=== PATIENT | female | born 1985 | race Caucasian/White ===

== ENCOUNTER 2018-04-06 14:57 | Inpatient (IN) | payer BC ==
[2018-04-06] MEDS ORDERED: Sodium Chloride 0.9% 2.5 ML Syringe FLUSH PRN (15:08)
[2018-04-06] MEDS ORDERED: Lidocaine 1% 50 ML MDV INJECT PRN (15:08)
[2018-04-06] MEDS ORDERED: Terbutaline 1 MG/ML SDV SUBCUT PRN (15:08)
[2018-04-06] MEDS ORDERED: Tranexamic Acid 1,000 MG in Sodium Chloride 0.9% 100 ML IV PRN (15:08)
[2018-04-06] MEDS ORDERED: Water For Irrigation,Sterile 1,000 ML Container IRR PRN (15:08)
[2018-04-06] MEDS ORDERED: Misoprostol 200 MCG Tab PO PRN (15:08)
[2018-04-06] MEDS ORDERED: Methylergonovine 0.2 MG/1 ML Amp IM PRN (15:08)
[2018-04-06] MEDS ORDERED: Butorphanol 1 MG/ML SDV IVPUSH PRN (15:08)
[2018-04-06] MEDS ORDERED: Sodium Chloride 0.9% 10 ML Syringe FLUSH PRN (15:08)
[2018-04-06] MEDS ORDERED: Carboprost Tromethamine 250 MCG/1 ML Amp IM PRN (15:08)
[2018-04-06] MEDS ORDERED: Oxytocin/0.9 % Sodium Chloride 30 UNIT/500 ML BAG IV SCH ×2 (15:15)
[2018-04-06] MEDS: Dextrose 5%-Lactated Ringers 1,000 ML IV SCH ×3 (16:49→22:07)
[2018-04-06] MEDS ORDERED: fentaNYL 100 MCG/2 ML SDV ONE (21:19)
--- NOTE | 2018-04-06 22:10 | PCM.PREANE ---
Preanesthetic Assessment - Anesthesia/Transfusion/Family Hx Anesthesia History: Prior Anesthesia Without Reaction Family History of Anesthesia Reaction: No Transfusion History: No Prior Transfusion(s) - Review of Systems General: No Symptoms Pulmonary: No Symptoms Cardiovascular: No Symptoms Gastrointestinal: Nausea, Vomiting Neurological: No Symptoms Other: Reports: None - Physical Assessment NPO Status Date: 04/06/18 NPO Status Time: 22:08 (sips/chips) Blood Pressure: 128/75 Height: 5 ft 5 in Weight: 176 lb ASA Class: 2 Mental Status: Alert & Oriented x3 Airway Class: Mallampati = 2 Dentition: Reports: Normal Dentition ROM/Head Extension: Full Lungs: Clear to Auscultation, Normal Respiratory Effort Cardiovascular: Regular Rate, Regular Rhythm - Lab Values: Laboratory Last Values WBC 7.82 K/uL (4.0-11.0) 04/06/18 15:50 RBC 3.83 M/uL (4.30-5.90) L 04/06/18 15:50 Hgb 11.8 g/dL (12.0-16.0) L 04/06/18 15:50 Hct 34.9 % (36.0-46.0) L 04/06/18 15:50 MCV 91.1 fL (80.0-98.0) 04/06/18 15:50 MCH 30.8 pg (27.0-32.0) 04/06/18 15:50 MCHC 33.8 g/dL (31.0-37.0) 04/06/18 15:50 RDW Std Deviation 47.3 fl (28.0-62.0) 04/06/18 15:50 RDW Coeff of Raji 14 % (11.0-15.0) 04/06/18 15:50 Plt Count 212 K/uL (150-400) 04/06/18 15:50 MPV 10.90 fL (7.40-12.00) 04/06/18 15:50 Nucleated RBC % 0.0 /100WBC 04/06/18 15:50 Nucleated RBCs # 0 K/uL 04/06/18 15:50 Blood Type A POSITIVE 04/06/18 15:50 Antibody Screen NEGATIVE 04/06/18 15:50 - Allergies Allergies/Adverse Reactions: Allergies Allergy/AdvReac Type Severity Reaction Status Date / Time ciprofloxacin Allergy Dizziness Verified 12/11/15 21:36 - Blood Blood Available: No Product(s) Available: None - Anesthesia Plan Free Text/Narrative:: Labor Epidural - Acknowledgements Anesthesia Type Planned: Epidural Pt an Appropriate Candidate for the Planned Anesthesia: Yes Alternatives and Risks of Anesthesia Discussed w Pt/Guardian: Yes Pt/Guardian Understands and Agrees with Anesthesia Plan: Yes PreAnesthesia Questionnaire HEENT History: Reports: Allergic Rhinitis, Sinusitis Genitourinary History: Reports: UTI, 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, Herpes - Past Surgical History HEENT Surgical History: Reports: Oral Surgery Female Surgical History: Reports: LEEP - SUBSTANCE USE Smoking Status *Q: Former Smoker Tobacco Use Within Last Twelve Months: Cigarettes Second Hand Smoke Exposure: No Recreational Drug Use History: No - HOME MEDS Home Medications: Home Meds Cyanocobalamin/Cobamamide [B-12 5,000 MCG Sublingual] 1 each SL DAILY 04/06/18 [ History] Vits #93/Iron Fum/FA [ Formula Tablet] 1 each PO DAILY [History] valACYclovir HCl [Valtrex] 500 mg PO BID 04/06/18 [History] - CURRENT (IN HOUSE) MEDS Current Meds: Current Medications Butorphanol Tartrate (Stadol) 1 mg IVPUSH Q1H PRN PRN Reason: Pain Carboprost Tromethamine (Hemabate Ds) 250 mcg IM ASDIRECTED PRN PRN Reason: Post Hemorrhage Dextrose/Lactated Ringer's (Dextrose 5%-Lactated Ringers) 1,000 mls @ 150 mls/ hr IV ASDIRECTED MITCH Last Admin: 04/06/18 21:31 Dose: 999 mls/hr Oxytocin/Sodium Chloride (Oxytocin 30 Unit/500 Ml-Ns) 30 unit in 500 mls @ 999 mls/hr IV TITRATE MITCH Oxytocin/Sodium Chloride (Oxytocin 30 Unit/500 Ml-Ns) 30 unit in 500 mls @ 2 mls/hr IV TITRATE MITCH; Protocol Last Titration: 04/06/18 20:12 Dose: 8 munits/min, 8 mls/hr Tranexamic Acid 1,000 mg/ (Sodium Chloride) 110 mls @ 660 mls/hr IV ONETIME PRN PRN Reason: Bleeding Lidocaine HCl (Xylocaine 1%) 50 ml INJECT .ONCE PRN PRN Reason: Laceration repair Methylergonovine Maleate (Methergine) 0.2 mg IM ASDIRECTED PRN PRN Reason: Post Hemorrhage Misoprostol (Cytotec) 200 mcg PO .ONCE PRN PRN Reason: Post Hemorrhage Sodium Chloride (Saline Flush) 10 ml FLUSH ASDIRECTED PRN PRN Reason: Keep Vein Open Sodium Chloride (Saline Flush) 2.5 ml FLUSH ASDIRECTED PRN PRN Reason: Keep Vein Open Sterile Water (Sterile Water For Irrigation) 1,000 ml IRR ASDIRECTED PRN PRN Reason: delivery Terbutaline Sulfate (Brethine) 0.25 mg SUBCUT ASDIRECTED PRN PRN Reason: Tacysystole Valacyclovir HCl (Valtrex) 500 mg PO BID MITCH Discontinued Medications Fentanyl (Sublimaze) Confirm Administered Dose 100 mcg .ROUTE .STK-MED ONE Stop: 04/06/18 21:20 Fentanyl/Bupivacaine HCl (Mdwoubrp-Npfgq-Ts 2 Mcg/Ml-0.125%) Confirm Administered Dose 100 mls @ as directed EP .STK-MED ONE Stop: 04/06/18 21:20
[2018-04-06] MEDS: valACYclovir 500 MG Tab PO SCH (22:42)
[2018-04-07] MEDS ORDERED: Lanolin 100% Cream 7 GM Tube TOP PRN (02:05)
[2018-04-07] MEDS ORDERED: Aluminum Hydroxide/Magnesium Hydroxide/Simethicone Susp 30 ML Cup PO PRN (02:05)
[2018-04-07] MEDS ORDERED: Benzocaine/Menthol 20%-0.5% Spray 78 GM Cannister TOP PRN (02:05)
[2018-04-07] MEDS ORDERED: Docusate Sodium 100 MG Cap PO PRN (02:05)
[2018-04-07] MEDS ORDERED: Ibuprofen 400 MG Tab PO PRN (02:05)
[2018-04-07] MEDS ORDERED: Ondansetron 4 MG/2 ML SDV IVPUSH PRN (02:05)
[2018-04-07] MEDS ORDERED: Witch Hazel Medicated Pads 40/Jar TOP PRN (02:05)
[2018-04-07] MEDS ORDERED: Bisacodyl 10 MG Supp RECTAL PRN (02:05)
[2018-04-07] MEDS ORDERED: Acetaminophen 500 MG Tab PO PRN ×2 (02:05)
[2018-04-07] MEDS: Ibuprofen 800 MG Tab PO PRN ×2 (04:20→14:42)
--- NOTE | 2018-04-07 05:24 | OR ---
SURGEON: Purnima Floyd M.D. DATE OF PROCEDURE: 04/07/2018 PREOPERATIVE DIAGNOSES: 1. A 40 and 5 weeks' intrauterine . 2. Spontaneous rupture of membranes. POSTOPERATIVE DIAGNOSES: 1. A 40 and 5 weeks' intrauterine . 2. Spontaneous rupture of membranes. PROCEDURE PERFORMED: Spontaneous vaginal delivery with intact perineum. ANESTHESIA: Epidural. ESTIMATED BLOOD LOSS: 400 mL. COMPLICATIONS: None. FINDINGS: Viable male, scores of 9 at 1 minute and 9 at 5 minutes, weight of 3880 g. Spontaneous delivery, intact placenta with 3-vessel cord. DISPOSITION: to nursery and mom in LDRP, stable. PROCEDURE IN DETAIL: Marj is a 32-year-old A1 at 40 and 4 weeks' gestational age when she had spontaneous rupture of membranes with clear fluid. She is group B beta strep negative. Therefore, she was admitted. Routine labs were drawn. On initial examination, she was found to be 3 to 4 cm dilated. She was monitored with no evidence of active labor and was initiated on Pitocin augmentation. heart tones in 130s with variability. She began making cervical change becoming more uncomfortable. She underwent regional anesthesia shortly after 9:00 p.m. At that time, she was found to be 4 cm. Over the next few hours, she progressed nicely to complete, 100% effaced, 0 station, began pushing efforts. I was called for delivery. Upon my arrival, the patient was placed in modified dorsal lithotomy position, prepped and draped in the usual aseptic manner, continued with pushing efforts, pushed adequately to a +4 station. heart tones remained in the 140s with pushing efforts. The patient was able to deliver the infant's head atraumatically and spontaneously followed by anterior shoulder, posterior shoulder, and remainder of the body without difficulty. The infant's oropharynx and nares were bulb suctioned. Cord was clamped x2 and cut. was handed off to his mother and attending nursing staff side. Cord arterial, cord venous, and cord blood sampling were obtained. Light pressure was applied while the placenta was delivered spontaneously intact. Vigorous fundal uterine massage was then applied while 30 units of Pitocin was delivered in 500 mL IV fluid. Upon inspection of cervix, vaginal sidewalls, and perineum, these were found to be intact. Sponge count was correct. The patient remained in LDRP and infant to nursery. JHONY / JACOB /[id number] MTDGetachew
--- NOTE | 2018-04-07 06:04 | PCM48HPAN ---
Post Anesthesia Note - EVALUATION WITHIN 48HRS OF ANESTHETIC Vital Signs in Normal Range: Yes Patient Participated in Evaluation: Yes Respiratory Function Stable: Yes Airway Patent: Yes Cardiovascular Function Stable: Yes Hydration Status Stable: Yes Pain Control Satisfactory: Yes Nausea and Vomiting Control Satisfactory: Yes Mental Status Recovered: Yes Blood Pressure: 128/75 - COMMENTS/OBSERVATIONS Free Text/Narrative:: No anesthesia complications.
[2018-04-07] MEDS: valACYclovir 500 MG Tab PO SCH ×2 (08:32→20:52)
[2018-04-07] MEDS ORDERED: diphenhydrAMINE 25 MG Cap PO PRN (09:34)
[2018-04-07] MEDS: oxyCODONE 5 MG Tab PO PRN ×2 (16:12→20:52)
[2018-04-08] MEDS: oxyCODONE 5 MG Tab PO PRN (00:02)
--- NOTE | 2018-04-08 06:44 | PCM.PNPP ---
- General Info Date of Service: 04/08/18 Admission Dx/Problem (Free Text): 32 yo s/p PPD1 Subjective Update: Patient denies any complains ambulating , tolerating regular diet , normal lochia Functional Status: Reports: Pain Controlled, Tolerating Diet, Ambulating, Urinating - Review of Systems General: Reports: No Symptoms HEENT: Reports: No Symptoms Pulmonary: Reports: No Symptoms Cardiovascular: Reports: No Symptoms Gastrointestinal: Reports: No Symptoms Genitourinary: Reports: No Symptoms Musculoskeletal: Reports: No Symptoms Skin: Reports: No Symptoms Neurological: Reports: No Symptoms Psychiatric: Reports: No Symptoms - General Info Date of Service: 04/08/18 - Patient Data Vital Signs - Most Recent: Last Vital Signs Temp 36.3 C 04/08/18 04:20 Pulse 67 04/08/18 04:20 Resp 14 04/08/18 04:20 BP 128/64 04/08/18 04:20 Pulse Ox 97 04/08/18 04:20 Weight - Most Recent: 79.832 kg Lab Results - Last 24 Hours: Laboratory Results - last 24 hr 04/08/18 Range/Units 04:50 Hgb 10.6 L (12.0-16.0) g/dL Hct 31.1 L (36.0-46.0) % Med Orders - Current: Current Medications Acetaminophen (Tylenol Extra Strength) 500 mg PO Q4H PRN PRN Reason: Pain Acetaminophen (Tylenol Extra Strength) 1,000 mg PO Q4H PRN PRN Reason: Pain Al Hydroxide/Mg Hydroxide (Mag-Al Plus) 30 ml PO Q8H PRN PRN Reason: Heartburn Benzocaine/Menthol (Dermoplast Pain Relief 20%-0.5% [place]) 78 gm TOP ASDIRECTED PRN PRN Reason: Perineal Comfort Measure Bisacodyl (Dulcolax) 10 mg RECTAL .ONCE PRN PRN Reason: Constipation Carboprost Tromethamine (Hemabate Ds) 250 mcg IM ASDIRECTED PRN PRN Reason: Post Hemorrhage Diphenhydramine HCl (Benadryl) 25 mg PO Q6H PRN PRN Reason: Itching Last Admin: 04/07/18 09:50 Dose: 25 mg Docusate Sodium (Colace) 100 mg PO BID PRN PRN Reason: Constipation Last Admin: 04/07/18 04:19 Dose: 100 mg Emollient Ointment (Lansinoh Hpa) 0 gm TOP ASDIRECTED PRN PRN Reason: Sore Nipples Dextrose/Lactated Ringer's (Dextrose 5%-Lactated Ringers) 1,000 mls @ 150 mls/ hr IV ASDIRECTED MITCH Last Admin: 04/06/18 22:07 Dose: 150 mls/hr Oxytocin/Sodium Chloride (Oxytocin 30 Unit/500 Ml-Ns) 30 unit in 500 mls @ 999 mls/hr IV TITRATE MITCH Oxytocin/Sodium Chloride (Oxytocin 30 Unit/500 Ml-Ns) 30 unit in 500 mls @ 2 mls/hr IV TITRATE MITCH; Protocol Last Titration: 04/07/18 01:43 Dose: 500 munits/min, 500 mls/hr Tranexamic Acid 1,000 mg/ (Sodium Chloride) 110 mls @ 660 mls/hr IV ONETIME PRN PRN Reason: Bleeding Ibuprofen (Motrin) 400 mg PO Q4H PRN PRN Reason: Pain Ibuprofen (Motrin) 800 mg PO Q6H PRN PRN Reason: Pain Last Admin: 04/07/18 14:42 Dose: 800 mg Lidocaine HCl (Xylocaine 1%) 50 ml INJECT .ONCE PRN PRN Reason: Laceration repair Methylergonovine Maleate (Methergine) 0.2 mg IM ASDIRECTED PRN PRN Reason: Post Hemorrhage Misoprostol (Cytotec) 200 mcg PO .ONCE PRN PRN Reason: Post Hemorrhage Ondansetron HCl (Zofran) 4 mg IVPUSH Q6H PRN PRN Reason: Nausea/Vomiting Oxycodone HCl (Oxycodone) 5 mg PO Q2H PRN PRN Reason: Pain Last Admin: 04/08/18 00:02 Dose: 5 mg Sodium Chloride (Saline Flush) 10 ml FLUSH ASDIRECTED PRN PRN Reason: Keep Vein Open Sodium Chloride (Saline Flush) 2.5 ml FLUSH ASDIRECTED PRN PRN Reason: Keep Vein Open Sterile Water (Sterile Water For Irrigation) 1,000 ml IRR ASDIRECTED PRN PRN Reason: delivery Last Admin: 04/07/18 01:00 Dose: 1,000 ml Valacyclovir HCl (Valtrex) 500 mg PO BID MITCH Last Admin: 04/07/18 20:52 Dose: 500 mg [place] Sonal (Tucks) 1 pad TOP ASDIRECTED PRN PRN Reason: comfort care Discontinued Medications Butorphanol Tartrate (Stadol) 1 mg IVPUSH Q1H PRN PRN Reason: Pain Fentanyl (Sublimaze) Confirm Administered Dose 100 mcg .ROUTE .STK-MED ONE Stop: 04/06/18 21:20 Last Admin: 04/07/18 07:28 Dose: Not Given Fentanyl/Bupivacaine HCl (Mmigzuac-Njiqs-Sf 2 Mcg/Ml-0.125%) Confirm Administered Dose 100 mls @ as directed EP .STK-MED ONE Stop: 04/06/18 21:20 Last Admin: 04/07/18 07:28 Dose: Not Given Terbutaline Sulfate (Brethine) 0.25 mg SUBCUT ASDIRECTED PRN PRN Reason: Tacysystole - Infant Interaction Support Person: - Recovery Exam Fundal Tone: Firm Fundal Level: 2 Fingerbreadths Below Umbilicus Fundal Placement: Midline Lochia Amount: Scant Lochia Color: Rubra/Red Perineum Description: Intact, Minimal Bruising/Swelling Episiotomy/Laceration: None Bladder Status: Voiding Urinary Elimination: Voided - Exam General: Alert, Oriented HEENT: Pupils Equal Neck: Supple Lungs: Clear to Auscultation Cardiovascular: Regular Rate, Regular Rhythm GI/Abdominal Exam: Normal Bowel Sounds Extremities: Normal Inspection Skin: Warm Wound/Incisions: Healing Well Neurological: No New Focal Deficit Psy/Mental Status: Alert - Problem List & Annotations (1) Vaginal delivery SNOMED Code(s): 917366292 Code(s): O80 - ENCOUNTER FOR FULL-TERM UNCOMPLICATED DELIVERY Status: Acute Current Visit: No - Problem List Review Problem List Initiated/Reviewed/Updated: Yes - My Orders Last 24 Hours: My Active Orders 04/07/18 09:34 diphenhydrAMINE [Benadryl] 25 mg PO Q6H PRN - Assessment Assessment:: 32 yo s/p , PPD1 stable - Plan Plan:: Routine care d/c home
[2018-04-08] MEDS: Ibuprofen 800 MG Tab PO PRN (07:59)
[2018-04-08 08:04] VITALS: BP 110/78
[2018-04-08] MEDS: valACYclovir 500 MG Tab PO SCH (09:18)
== END 2018-04-08 12:00 | disposition home or self-care (01) | DRG 560 ==
LOC: MW.OBCHECK 14:57 → MW.OB 14:59 → MW.OBCHECK 15:08 → MW.OB 15:08 → OBSVTOIN 04-07 01:43 → MW.OB 04-07 04:15
PROVIDERS: ADMIT Obstetrics & Gynecology; ATTEND Obstetrics & Gynecology
PROC: 10E0XZZ Delivery of Products of Conception, External Approach (ICD-10-PCS; principal; 2018-04-07)
PROC: 3E033VJ Introduction of Other Hormone into Peripheral Vein, Percutaneous Approach (ICD-10-PCS; 2018-04-07)
DX: O42.02 Full-term premature rupture of membranes, onset of labor within 24 hours of rupture (principal); Z3A.40 40 weeks gestation of pregnancy; Z37.0 Single live birth
CPT/HCPCS: 36415; 51702; 59025; 59409; 82803; 85014; 85018; 85027; 86850; 86900; 86901; A9270-GY; J2590; J7042

== ENCOUNTER 2018-05-15 00:01 | Emergency (ER) | payer BC ==
--- NOTE | 2018-05-15 00:59 | EDM.PDOC ---
ED HPI GENERAL MEDICAL PROBLEM - General Chief Complaint: Fever Stated Complaint: FLU LIKE SYMPTONS AND HIGH FEVER Time Seen by Provider: 05/15/18 00:58 Source of Information: Reports: Patient - History of Present Illness INITIAL COMMENTS - FREE TEXT/NARRATIVE: HISTORY AND PHYSICAL: History of present illness: [Patient presents with fever, she has a one-month insufficient is breast- feeding and has a mastitis. She also has UTI.] No nausea vomiting chills sweats Review of systems: As per history of present illness and below otherwise all systems reviewed and negative. Past medical history: As per history of present illness and as reviewed below otherwise noncontributory. Surgical history: As per history of present illness and as reviewed below otherwise noncontributory. Social history: No reported history of drug or alcohol abuse. Family history: As per history of present illness and as reviewed below otherwise noncontributory. Physical exam: HEENT: Atraumatic, normocephalic, pupils reactive, negative for conjunctival pallor or scleral icterus, mucous membranes moist, throat clear, neck supple, nontender, trachea midline. Lungs: Clear to auscultation, breath sounds equal bilaterally, chest nontender. Heart: S1S2, regular, negative for clicks, rubs, or JVD. Abdomen: Soft, nondistended, nontender. Negative for masses or hepatosplenomegaly. Negative for costovertebral tenderness. Pelvis: Stable nontender. Genitourinary: Deferred. Rectal: Deferred. Extremities: Atraumatic, negative for cords or calf pain. Neurovascular unremarkable. Neuro: Awake, alert, oriented. Cranial nerves II through XII unremarkable. Cerebellum unremarkable. Motor and sensory unremarkable throughout. Exam nonfocal. 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 Generalized Pain Score (Numeric/FACES): 4 - Related Data Allergies Allergy/AdvReac Type Severity Reaction Status Date / Time ciprofloxacin Allergy Dizziness Verified 12/11/15 21:36 Home Meds: Home Meds . 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, Herpes - Past Surgical History HEENT Surgical History: Reports: Oral Surgery Female Surgical History: Reports: LEEP Social & Family History - Family History HEENT: Reports: Allergic Rhinitis, Cataract, Impaired Vision, Macular Degeneration, Sinusitis Cardiac: Reports: Hypertension GI: Reports: Cirrhosis OBGYN: Reports: Neurological: Reports: TIA Psychiatric: Reports: Anxiety Oncologic: Reports: Prostate - Tobacco Use Smoking Status *Q: Never Smoker - Caffeine Use Caffeine Use: Reports: Coffee, Soda, Tea - Recreational Drug Use Recreational Drug Use: No ED ROS GENERAL - Review of Systems Review Of Systems: See Below ED EXAM, GENERAL - Physical Exam Exam: See Below Course - Vital Signs Last Recorded V/S: Last Vital Signs Temp 100.9 F H 05/15/18 00:34 Pulse 89 05/15/18 00:27 Resp 18 05/15/18 00:27 BP 122/72 05/15/18 00:27 Pulse Ox 96 05/15/18 00:27 - Orders/Labs/Meds Orders: Active Orders 24 hr Category Date Time Status Chest 1V Frontal [CR] Stat Exams 05/15/18 00:57 Taken CULTURE BLOOD [BC] Stat Lab 05/15/18 01:22 Received CULTURE BLOOD [BC] Stat Lab 05/15/18 01:29 Received CULTURE URINE [RM] Stat Lab 05/15/18 01:57 Ordered HCG QUALITATIVE,URINE [URCHEM] Stat Lab 05/15/18 01:16 Ordered UA W/MICROSCOPIC [URIN] Stat Lab 05/15/18 01:16 Ordered Blood Culture x2 Reflex Set [OM.PC] Stat Oth 05/15/18 00:57 Ordered Labs: Laboratory Tests 06/17/18 06/17/18 06/17/18 Range/Units 01:16 01:16 01:22 WBC 9.52 (4.0-11.0) K/uL RBC 3.47 L (4.30-5.90) M/uL Hgb 10.6 L (12.0-16.0) g/dL Hct 31.7 L (36.0-46.0) % MCV 91.4 (80.0-98.0) fL MCH 30.5 (27.0-32.0) pg MCHC 33.4 (31.0-37.0) g/dL RDW Std Deviation 39.0 (28.0-62.0) fl RDW Coeff of Raji 12 (11.0-15.0) % Plt Count 184 (150-400) K/uL MPV 10.40 (7.40-12.00) fL Neut % (Auto) 85.3 H (48.0-80.0) % Lymph % (Auto) 9.5 L (16.0-40.0) % Lane % (Auto) 4.6 (0.0-15.0) % Eos % (Auto) 0.5 (0.0-7.0) % Baso % (Auto) 0.1 (0.0-1.5) % Neut # (Auto) 8.1 H (1.4-5.7) K/uL Lymph # (Auto) 0.9 (0.6-2.4) K/uL Lane # (Auto) 0.4 (0.0-0.8) K/uL Eos # (Auto) 0.1 (0.0-0.7) K/uL Baso # (Auto) 0.0 (0.0-0.1) K/uL Sodium (136-145) mmol/L Potassium (3.5-5.1) mmol/L Chloride (98-107) mmol/L Carbon Dioxide (21.0-32.0) mmol/L BUN (7.0-18.0) mg/dL Creatinine (0.6-1.0) mg/dL Est Cr Clr Drug Dosing mL/min Estimated GFR (MDRD) ml/min Glucose (74-106) mg/dL Calcium (8.5-10.1) mg/dL Total Bilirubin (0.2-1.0) mg/dL AST (15-37) IU/L ALT (14-63) IU/L Alkaline Phosphatase (46-116) U/L Total Protein (6.4-8.2) g/dL Albumin (3.4-5.0) g/dL Globulin (2.0-3.5) g/dL Albumin/Globulin Ratio (1.3-2.8) Urine Color YELLOW Urine Appearance HAZY Urine pH 6.0 (5.0-8.0) Ur Specific [place] <= 1.005 (1.001-1.035) Urine Protein NEGATIVE (NEGATIVE) mg/dL Urine Glucose (UA) NEGATIVE (NEGATIVE) mg/dL Urine Ketones NEGATIVE (NEGATIVE) mg/dL Urine Occult Blood NEGATIVE (NEGATIVE) Urine Nitrite POSITIVE H (NEGATIVE) Urine Bilirubin NEGATIVE (NEGATIVE) Urine Urobilinogen 0.2 (<2.0) EU/dL Ur Leukocyte Esterase TRACE (NEGATIVE) Urine RBC 0-2 (0-2/HPF) Urine WBC 1-3 (0-5/HPF) Ur Epithelial Cells FEW (NONE-FEW) Urine Bacteria 2+ H (NEGATIVE) Urine HCG, Qual NEGATIVE (NEGATIVE) 05/15/18 Range/Units 01:22 WBC (4.0-11.0) K/uL RBC (4.30-5.90) M/uL Hgb (12.0-16.0) g/dL Hct (36.0-46.0) % MCV (80.0-98.0) fL MCH (27.0-32.0) pg MCHC (31.0-37.0) g/dL RDW Std Deviation (28.0-62.0) fl RDW Coeff of Raji (11.0-15.0) % Plt Count (150-400) K/uL MPV (7.40-12.00) fL Neut % (Auto) (48.0-80.0) % Lymph % (Auto) (16.0-40.0) % Lane % (Auto) (0.0-15.0) % Eos % (Auto) (0.0-7.0) % Baso % (Auto) (0.0-1.5) % Neut # (Auto) (1.4-5.7) K/uL Lymph # (Auto) (0.6-2.4) K/uL Lane # (Auto) (0.0-0.8) K/uL Eos # (Auto) (0.0-0.7) K/uL Baso # (Auto) (0.0-0.1) K/uL Sodium 140 (136-145) mmol/L Potassium 3.2 L (3.5-5.1) mmol/L Chloride 104 (98-107) mmol/L Carbon Dioxide 26.2 (21.0-32.0) mmol/L BUN 9 (7.0-18.0) mg/dL Creatinine 1.0 (0.6-1.0) mg/dL Est Cr Clr Drug Dosing 72.00 mL/min Estimated GFR (MDRD) > 60.0 ml/min Glucose 110 H (74-106) mg/dL Calcium 8.3 L (8.5-10.1) mg/dL Total Bilirubin 0.5 (0.2-1.0) mg/dL AST 18 (15-37) IU/L ALT 35 (14-63) IU/L Alkaline Phosphatase 72 (46-116) U/L Total Protein 6.5 (6.4-8.2) g/dL Albumin 3.3 L (3.4-5.0) g/dL Globulin 3.2 (2.0-3.5) g/dL Albumin/Globulin Ratio 1.0 L (1.3-2.8) Urine Color Urine Appearance Urine pH (5.0-8.0) Ur Specific [place] (1.001-1.035) Urine Protein (NEGATIVE) mg/dL Urine Glucose (UA) (NEGATIVE) mg/dL Urine Ketones (NEGATIVE) mg/dL Urine Occult Blood (NEGATIVE) Urine Nitrite (NEGATIVE) Urine Bilirubin (NEGATIVE) Urine Urobilinogen (<2.0) EU/dL Ur Leukocyte Esterase (NEGATIVE) Urine RBC (0-2/HPF) Urine WBC (0-5/HPF) Ur Epithelial Cells (NONE-FEW) Urine Bacteria (NEGATIVE) Urine HCG, Qual (NEGATIVE) Departure - Departure Time of Disposition: 02:23 Disposition: Home, Self-Care 01 Condition: Good Clinical Impression: Mastitis, UTI (urinary tract infection) - Discharge Information Referrals: Jing Hallman DO [Primary Care Provider] - Forms: ED Department Discharge Additional Instructions: Medication as prescribed Return if symptoms persist or worsen Follow-up with primary care, call phone number below to schedule appropriate follow-up [facility] - Primary Care [address] [place] [id number] The following information is given to patients seen in the emergency department who are being discharged to home. This information is to outline your options for follow-up care. We provide all patients seen in our emergency department with a follow-up referral. The need for follow-up, as well as the timing and circumstances, are variable depending upon the specifics of your emergency department visit. If you don't have a primary care physician on staff, we will provide you with a referral. We always advise you to contact your personal physician following an emergency department visit to inform them of the circumstance of the visit and for follow-up with them and/or the need for any referrals to a consulting specialist. The emergency department will also refer you to a specialist when appropriate. This referral assures that you have the opportunity for follow-up care with a specialist. All of these measure are taken in an effort to provide you with optimal care, which includes your follow-up. Under all circumstances we always encourage you to contact your private physician who remains a resource for coordinating your care. When calling for follow-up care, please make the office aware that this follow-up is from your recent emergency room visit. If for any reason you are refused follow-up, please contact the [facility] emergency department at and asked to speak to the emergency department charge nurse. - My Orders Last 24 Hours: My Active Orders 05/15/18 00:57 Chest 1V Frontal [CR] Stat Blood Culture x2 Reflex Set [OM.PC] Stat 05/15/18 01:16 HCG QUALITATIVE,URINE [URCHEM] Stat UA W/MICROSCOPIC [URIN] Stat 05/15/18 01:22 CULTURE BLOOD [BC] Stat 05/15/18 01:29 CULTURE BLOOD [BC] Stat 05/15/18 01:57 CULTURE URINE [RM] Stat - Assessment/Plan Last 24 Hours: My Active Orders 05/15/18 00:57 Chest 1V Frontal [CR] Stat Blood Culture x2 Reflex Set [OM.PC] Stat 05/15/18 01:16 HCG QUALITATIVE,URINE [URCHEM] Stat UA W/MICROSCOPIC [URIN] Stat 05/15/18 01:22 CULTURE BLOOD [BC] Stat 05/15/18 01:29 CULTURE BLOOD [BC] Stat 05/15/18 01:57 CULTURE URINE [RM] Stat
[2018-05-15 01:52] LABS: CHLORIDE,CL 104 mmol/L (98-107); SODIUM,NA 140 mmol/L (136-145)
[2018-05-15 02:51] VITALS: BP 99/60
--- NOTE | 2018-05-16 14:52 | CR ---
EXAM DATE: 05/15/18 PATIENT'S AGE: 32 Patient: ASHISH VAUGHN Facility: [place], [place] Site . Site : [id number] Study: XRay Chest [id number]/17/2018 1:55:00 AM Ordering Physician: Doctor Felix Final Report: INDICATION: fever TECHNIQUE: Chest 1 view. COMPARISON: None. FINDINGS: Cardiovascular and mediastinum: Heart size and vasculature are normal in caliber and appearance. Mediastinum is within normal limits. Lungs and pleural space: Lungs are clear. No sign of infiltrate or mass. No sign of pleural effusion. No pneumothorax. Bones and soft tissues: No significant findings. IMPRESSION: Unremarkable chest. Dictated by: Farhan Raines MD @ 05/15/2018 02:00:03 (Electronic Signature) Report Signed by Proxy. ANGELIQUE
== END 2018-05-15 02:30 | disposition home or self-care (01) ==
LOC: MW.ED 00:01
DX: N61.0 Mastitis without abscess (principal); N39.0 Urinary tract infection, site not specified; Z88.1 Allergy status to other antibiotic agents
CPT/HCPCS: 36415; 71045; 71045-26; 80053; 81001; 81025; 85025; 87040; 87086; 87088; 87186; 99283

== ENCOUNTER 2020-04-19 06:47 | Inpatient (IN) | payer BC ==
[2020-04-19] MEDS ORDERED: Terbutaline 1 MG/ML SDV SUBCUT PRN (06:57)
[2020-04-19] MEDS ORDERED: Sodium Chloride 0.9% 10 ML SDV IV PRN (06:57)
[2020-04-19] MEDS ORDERED: Misoprostol 200 MCG Tab PO PRN (06:57)
[2020-04-19] MEDS ORDERED: Methylergonovine 0.2 MG/1 ML Amp IM PRN (06:57)
[2020-04-19] MEDS ORDERED: Nalbuphine 10 MG/1 ML Vial IVPUSH PRN (06:57)
[2020-04-19] MEDS ORDERED: Water For Irrigation,Sterile 1,000 ML Container IRR PRN (06:57)
[2020-04-19] MEDS ORDERED: Sodium Chloride 0.9% 2.5 ML Syringe FLUSH PRN (06:57)
[2020-04-19] MEDS ORDERED: Sodium Chloride 0.9% 10 ML Syringe FLUSH PRN (06:57)
[2020-04-19] MEDS ORDERED: Carboprost Tromethamine 250 MCG/1 ML Amp IM PRN (06:57)
[2020-04-19] MEDS ORDERED: Tranexamic Acid 1,000 MG in Sodium Chloride 0.9% 100 ML IV PRN (06:57)
[2020-04-19] MEDS ORDERED: Ondansetron 4 MG/2 ML SDV IVPUSH PRN (06:57)
[2020-04-19] MEDS ORDERED: Butorphanol 1 MG/ML SDV IVPUSH PRN (06:57)
[2020-04-19] MEDS ORDERED: Lidocaine 1% 50 ML MDV INJECT PRN (06:57)
[2020-04-19] MEDS ORDERED: Lactated Ringers 1,000 ML IV SCH (07:00)
[2020-04-19] MEDS ORDERED: Oxytocin/0.9 % Sodium Chloride 30 UNIT/500 ML BAG IV SCH ×2 (07:00)
[2020-04-19] MEDS ORDERED: Ropivacaine HCl/PF 100 ML ONE (10:38)
[2020-04-19] MEDS ORDERED: fentaNYL 100 MCG/2 ML SDV ONE (10:38)
[2020-04-19] MEDS ORDERED: Ropivacaine 0.2% PF 2 MG/ML 20 ML SDV ONE (10:38)
--- NOTE | 2020-04-19 11:25 | PCM.PREANE ---
Preanesthetic Assessment - Anesthesia/Transfusion/Family Hx Anesthesia History: Prior Anesthesia Without Reaction Family History of Anesthesia Reaction: No Transfusion History: No Prior Transfusion(s) Intubation History: Intubation other than for Surgery in past - Review of Systems General: No Symptoms Pulmonary: No Symptoms Cardiovascular: No Symptoms Gastrointestinal: No Symptoms Neurological: No Symptoms Other: Reports: None - Physical Assessment NPO Status Date: 04/19/20 NPO Status Time: 10:30 (Clear Liquids) Height: 1.65 m Weight: 79.832 kg ASA Class: 2 Mental Status: Alert & Oriented x3 Airway Class: Mallampati = 2 Dentition: Reports: Normal Dentition Thyro-Mental Finger Breadths: 3 Mouth Opening Finger Breadths: 3 ROM/Head Extension: Full Lungs: Clear to Auscultation Cardiovascular: Regular Rate - Lab Values: Laboratory Last Values WBC 8.46 K/uL (4.0-11.0) 04/19/20 07:40 RBC 3.65 M/uL (4.30-5.90) L 04/19/20 07:40 Hgb 11.4 g/dL (12.0-16.0) L 04/19/20 07:40 Hct 33.7 % (36.0-46.0) L 04/19/20 07:40 MCV 92.3 fL (80.0-98.0) 04/19/20 07:40 MCH 31.2 pg (27.0-32.0) 04/19/20 07:40 MCHC 33.8 g/dL (31.0-37.0) 04/19/20 07:40 RDW Std Deviation 45.9 fl (28.0-62.0) 04/19/20 07:40 RDW Coeff of Raji 14 % (11.0-15.0) 04/19/20 07:40 Plt Count 198 K/uL (150-400) 04/19/20 07:40 MPV 10.90 fL (7.40-12.00) 04/19/20 07:40 Nucleated RBC % 0.0 /100WBC 04/19/20 07:40 Nucleated RBCs # 0 K/uL 04/19/20 07:40 Blood Type A POSITIVE 04/19/20 07:40 Antibody Screen NEGATIVE 04/19/20 07:40 - Allergies Allergies/Adverse Reactions: Allergies Allergy/AdvReac Type Severity Reaction Status Date / Time ciprofloxacin Allergy Mild Dizziness Verified 04/19/20 06:55 - Blood Blood Available: No Product(s) Available: None - Anesthesia Plan Pre-Op Medication Ordered: None - Acknowledgements Anesthesia Type Planned: Epidural Pt an Appropriate Candidate for the Planned Anesthesia: Yes Alternatives and Risks of Anesthesia Discussed w Pt/Guardian: Yes Pt/Guardian Understands and Agrees with Anesthesia Plan: Yes Additional Comments: requesting SHELBY. Active labor. Pain 3/10. On pitocin. History of back labor. Discussed. ? answered. Permit signed. Wishes to proceed. PreAnesthesia Questionnaire - Past Health History Medical/Surgical History: Denies Medical/Surgical History HEENT History: Reports: Allergic Rhinitis, Sinusitis Genitourinary History: Reports: UTI, Recurrent COOK STATION History: Reports: , Other (See Below) Other OB/BYN History: Abnormal pap. 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, Herpes, Human Papilloma Virus (HPV) - Past Surgical History HEENT Surgical History: Reports: Oral Surgery Female Surgical History: Reports: LEEP - SUBSTANCE USE Smoking Status *Q: Former Smoker Second Hand Smoke Exposure: No Recreational Drug Use History: No - HOME MEDS Home Medications: Home Meds Cyanocobalamin (Vitamin B-12) [B-12] 500 mcg PO DAILY 01/29/20 [History] Docosahexaenoic Acid [ Dha] 200 mg PO DAILY 01/29/20 [History] Levomefolate/Algal Oil [Deplin-Algal Oil 15 mg Capsule] 15 mg PO DAILY 01/29/20 [History] Magnesium 250 mg PO DAILY 01/29/20 [History] Mv-Mn/Iron/Folic Acid/Herb 190 [Vitamin D3 Complete Caplet] 1 cap PO DAILY 01/28 [History] valACYclovir [Valtrex] 500 mg PO DAILY 04/18/20 [History] - CURRENT (IN HOUSE) MEDS Current Meds: Current Medications Butorphanol Tartrate (Stadol) 1 mg IVPUSH Q1H PRN PRN Reason: Pain Carboprost Tromethamine (Hemabate Ds) 250 mcg IM ASDIRECTED PRN PRN Reason: Post Hemorrhage Lactated Ringer's (Ringers, Lactated) 1,000 mls @ 150 mls/hr IV ASDIRECTED MITCH Last Admin: 04/19/20 08:00 Dose: 150 mls/hr Oxytocin/Sodium Chloride (Oxytocin 30 Unit/500 Ml-Ns) 30 unit in 500 mls @ 2 mls/hr IV TITRATE MITCH; Protocol Last Titration: 04/19/20 11:13 Dose: 8 munits/min, 8 mls/hr Oxytocin/Sodium Chloride (Oxytocin 30 Unit/500 Ml-Ns) 30 unit in 500 mls @ 555 mls/hr IV TITRATE MITCH Tranexamic Acid 1,000 mg/ (Sodium Chloride) 110 mls @ 660 mls/hr IV ONETIME PRN PRN Reason: Bleeding Lidocaine HCl (Xylocaine 1%) 50 ml INJECT ONETIME PRN PRN Reason: Laceration repair Methylergonovine Maleate (Methergine) 0.2 mg IM ASDIRECTED PRN PRN Reason: Post Hemorrhage Misoprostol (Cytotec) 200 mcg PO ONETIME PRN PRN Reason: Post Hemorrhage Nalbuphine HCl (Nubain) 10 mg IVPUSH Q1H PRN PRN Reason: Pain (severe 7-10) Ondansetron HCl (Zofran) 4 mg IVPUSH Q4H PRN PRN Reason: Nausea/Vomiting Sodium Chloride (Saline Flush) 10 ml FLUSH ASDIRECTED PRN PRN Reason: Keep Vein Open Sodium Chloride (Saline Flush) 2.5 ml FLUSH ASDIRECTED PRN PRN Reason: Keep Vein Open Sodium Chloride (Normal Saline) 10 ml IV ASDIRECTED PRN PRN Reason: IV Use Sterile Water (Sterile Water For Irrigation) 1,000 ml IRR ASDIRECTED PRN PRN Reason: delivery Terbutaline Sulfate (Brethine) 0.25 mg SUBCUT ASDIRECTED PRN PRN Reason: Tacysystole Discontinued Medications Fentanyl (Sublimaze) Confirm Administered Dose 100 mcg .ROUTE .STK-MED ONE Stop: 04/19/20 10:39 Ropivacaine (Naropin 0.2%) Confirm Administered Dose 100 mls @ as directed .ROUTE .STK-MED ONE Stop: 04/19/20 10:39 Ropivacaine (Naropin 0.2%) Confirm Administered Dose 20 ml .ROUTE .STK-MED ONE Stop: 04/19/20 10:39
[2020-04-19] MEDS ORDERED: Docusate Sodium 100 MG Cap PO PRN (18:30)
[2020-04-19] MEDS ORDERED: Lanolin 100% Cream 7 GM Tube TOP PRN (18:30)
[2020-04-19] MEDS ORDERED: Witch Hazel Medicated Pads 40/Jar TOP PRN (18:30)
[2020-04-19] MEDS ORDERED: Bisacodyl 10 MG Supp RECTAL PRN (18:30)
[2020-04-19] MEDS ORDERED: Ibuprofen 400 MG Tab PO PRN (18:30)
[2020-04-19] MEDS ORDERED: Acetaminophen 500 MG Tab PO PRN (18:30)
[2020-04-19] MEDS ORDERED: Benzocaine/Menthol 20%-0.5% Spray 78 GM Cannister TOP PRN (18:30)
[2020-04-19] MEDS ORDERED: oxyCODONE 5 MG Tab PO PRN (18:30)
--- NOTE | 2020-04-19 18:38 | PCM.DEL ---
L & D Note - General Info Date of Service: 04/19/20 - Delivery Note Labor: Augmented by Oxytocin Cervical Ripening Method: Oxytocin Delivery Outcome: Livebirth Infant Delivery Method: Spontaneous Vaginal Delivery-Single Presentation: Left Occiput Anterior (ZAIDA) Nuchal Cord: Present Anesthesia Type: Epidural Amniotic Fluid Description: Clear Episiotomy Type: None Laceration: None Cord: 3 Vessels Estimated Blood Loss: 200 Resuscitation Needed: No Score 1 min: 8 Score 5 min: 9 Delivery Comments (Free Text/Narrative):: Live female delivered at 5.57pm , 8/9 , weight : 3740g - General Info Date of Service: 04/19/20 - Patient Data Weight - Most Recent: 79.832 kg Lab Results Last 24 Hours: Laboratory Results - last 24 hr 04/19/20 04/19/20 Range/Units 07:40 07:40 WBC 8.46 (4.0-11.0) K/uL RBC 3.65 L (4.30-5.90) M/uL Hgb 11.4 L (12.0-16.0) g/dL Hct 33.7 L (36.0-46.0) % MCV 92.3 (80.0-98.0) fL MCH 31.2 (27.0-32.0) pg MCHC 33.8 (31.0-37.0) g/dL RDW Std Deviation 45.9 (28.0-62.0) fl RDW Coeff of Raji 14 (11.0-15.0) % Plt Count 198 (150-400) K/uL MPV 10.90 (7.40-12.00) fL Nucleated RBC % 0.0 /100WBC Nucleated RBCs # 0 K/uL Blood Type A POSITIVE Antibody Screen NEGATIVE Med Orders - Current: Current Medications Acetaminophen (Tylenol Extra Strength) 500 mg PO Q4H PRN PRN Reason: Pain Acetaminophen (Tylenol Extra Strength) 1,000 mg PO Q4H PRN PRN Reason: Pain Benzocaine/Menthol (Dermoplast Pain Relief 20%-0.5% [place]) 78 gm TOP ASDIRECTED PRN PRN Reason: Perineal Comfort Measure Bisacodyl (Dulcolax) 10 mg RECTAL ONETIME PRN PRN Reason: Constipation Butorphanol Tartrate (Stadol) 1 mg IVPUSH Q1H PRN PRN Reason: Pain Carboprost Tromethamine (Hemabate Ds) 250 mcg IM ASDIRECTED PRN PRN Reason: Post Hemorrhage Docusate Sodium (Colace) 100 mg PO BID PRN PRN Reason: Constipation Emollient Ointment (Lansinoh Hpa) 0 gm TOP ASDIRECTED PRN PRN Reason: Sore Nipples Lactated Ringer's (Ringers, Lactated) 1,000 mls @ 150 mls/hr IV ASDIRECTED MITCH Last Admin: 04/19/20 08:00 Dose: 150 mls/hr Oxytocin/Sodium Chloride (Oxytocin 30 Unit/500 Ml-Ns) 30 unit in 500 mls @ 2 mls/hr IV TITRATE MITCH; Protocol Last Titration: 04/19/20 15:15 Dose: 18 munits/min, 18 mls/hr Oxytocin/Sodium Chloride (Oxytocin 30 Unit/500 Ml-Ns) 30 unit in 500 mls @ 555 mls/hr IV TITRATE MITCH Tranexamic Acid 1,000 mg/ (Sodium Chloride) 110 mls @ 660 mls/hr IV ONETIME PRN PRN Reason: Bleeding Ibuprofen (Motrin) 400 mg PO Q4H PRN PRN Reason: Pain Ibuprofen (Motrin) 800 mg PO Q6H PRN PRN Reason: Pain Lidocaine HCl (Xylocaine 1%) 50 ml INJECT ONETIME PRN PRN Reason: Laceration repair Methylergonovine Maleate (Methergine) 0.2 mg IM ASDIRECTED PRN PRN Reason: Post Hemorrhage Misoprostol (Cytotec) 200 mcg PO ONETIME PRN PRN Reason: Post Hemorrhage Nalbuphine HCl (Nubain) 10 mg IVPUSH Q1H PRN PRN Reason: Pain (severe 7-10) Ondansetron HCl (Zofran) 4 mg IVPUSH Q4H PRN PRN Reason: Nausea/Vomiting Oxycodone HCl (Oxycodone) 5 mg PO Q2H PRN PRN Reason: Pain Sodium Chloride (Saline Flush) 10 ml FLUSH ASDIRECTED PRN PRN Reason: Keep Vein Open Sodium Chloride (Saline Flush) 2.5 ml FLUSH ASDIRECTED PRN PRN Reason: Keep Vein Open Sodium Chloride (Normal Saline) 10 ml IV ASDIRECTED PRN PRN Reason: IV Use Sterile Water (Sterile Water For Irrigation) 1,000 ml IRR ASDIRECTED PRN PRN Reason: delivery [place] Pruitt (Tucks) 1 pad TOP ASDIRECTED PRN PRN Reason: comfort care Discontinued Medications Fentanyl (Sublimaze) Confirm Administered Dose 100 mcg .ROUTE .STK-MED ONE Stop: 04/19/20 10:39 Ropivacaine (Naropin 0.2%) Confirm Administered Dose 100 mls @ as directed .ROUTE .STK-MED ONE Stop: 04/19/20 10:39 Ropivacaine (Naropin 0.2%) Confirm Administered Dose 20 ml .ROUTE .STK-MED ONE Stop: 04/19/20 10:39 Terbutaline Sulfate (Brethine) 0.25 mg SUBCUT ASDIRECTED PRN PRN Reason: Tacysystole - Problem List & Annotations (1) Vaginal delivery SNOMED Code(s): 617767966 Code(s): O80 - ENCOUNTER FOR FULL-TERM UNCOMPLICATED DELIVERY Status: Acute Current Visit: No - Problem List Review Problem List Initiated/Reviewed/Updated: Yes - My Orders Last 24 Hours: My Active Orders 04/19/20 06:57 Butorphanol [Stadol] 1 mg IVPUSH Q1H PRN Carboprost Tromethamine [Hemabate DS] 250 mcg IM ASDIRECTED PRN Lidocaine 1% [Xylocaine 1%] 50 ml INJECT ONETIME PRN Methylergonovine [Methergine] 0.2 mg IM ASDIRECTED PRN Nalbuphine [Nubain] 10 mg IVPUSH Q1H PRN Ondansetron [Zofran] 4 mg IVPUSH Q4H PRN Sodium Chloride 0.9% [Normal Saline] 10 ml IV ASDIRECTED PRN Sodium Chloride 0.9% [Saline Flush] 10 ml FLUSH ASDIRECTED PRN Sodium Chloride 0.9% [Saline Flush] 2.5 ml FLUSH ASDIRECTED PRN Tranexamic Acid [Cyklokapron] 1,000 mg Sodium Chloride 0.9% [Normal Saline] 100 ml IV ONETIME Water For Irrigation,Sterile [Sterile Water for Irrigation] 1,000 ml IRR ASDIRECTED PRN miSOPROStoL [Cytotec] 200 mcg PO ONETIME PRN 04/19/20 06:59 Patient Status [ADT] Routine Bedrest Bathroom Privileges [RC] ASDIRECTED Communication Order [RC] ASDIRECTED Communication Order [RC] ASDIRECTED Communication Order [RC] ASDIRECTED Heart Tones [RC] CONTINUOUS Non Stress Test [RC] PER UNIT ROUTINE May Shower [RC] ASDIRECTED Notify Provider [RC] PRN Notify Provider [RC] PRN Notify Provider [RC] PRN Notify Provider [RC] STAT Oxygen Therapy [RC] ASDIRECTED Up ad Hannah [RC] ASDIRECTED Vaginal Exam [RC] PRN Vaginal Exam [RC] PRN Vital Signs [RC] PER UNIT ROUTINE Vital Signs [RC] PER UNIT ROUTINE Peripheral IV Insertion Adult [OM.PC] Routine 04/19/20 07:00 Lactated Ringers [Ringers, Lactated] 1,000 ml IV ASDIRECTED Oxytocin/0.9 % Sodium Chloride [Oxytocin 30 Unit/500 ML-NS] 30 unit in 500 ml IV TITRATE Oxytocin/0.9 % Sodium Chloride [Oxytocin 30 Unit/500 ML-NS] 30 unit in 500 ml IV TITRATE Medication Administration Instruction [OM.PC] Q3H 04/19/20 07:40 RPR (SYPHILIS SERO) W/ RFLX [REF] Routine 04/19/20 18:30 Patient Status [ADT] Routine May Shower [RC] ASDIRECTED Up ad Hannah [RC] ASDIRECTED Vital Signs [RC] PER UNIT ROUTINE Acetaminophen [Tylenol Extra Strength] 1,000 mg PO Q4H PRN Acetaminophen [Tylenol Extra Strength] 500 mg PO Q4H PRN Benzocaine/Menthol [Dermoplast Pain Relief 20%-0.5% [place]] 78 gm TOP ASDIRECTED PRN Docusate Sodium [Colace] 100 mg PO BID PRN Ibuprofen [Motrin] 400 mg PO Q4H PRN Ibuprofen [Motrin] 800 mg PO Q6H PRN Lanolin [Lansinoh HPA] See Dose Instructions TOP ASDIRECTED PRN bisacodyL [Dulcolax] 10 mg RECTAL ONETIME PRN oxyCODONE 5 mg PO Q2H PRN witch Suzi [Tucks] 1 pad TOP ASDIRECTED PRN Assess Lochia [WOMSER] Per Unit Routine Assess Uterine Involution [WOMSER] Per Unit Routine Peripheral IV Discontinue [OM.PC] Routine Resuscitation Status Routine 04/20/20 05:11 HEMOGLOBIN/HEMATOCRIT,HH [HEME] Timed
[2020-04-19] MEDS: Ibuprofen 800 MG Tab PO PRN (23:58)
[2020-04-20] MEDS: Ibuprofen 800 MG Tab PO PRN ×2 (05:51→14:27)
[2020-04-20] MEDS: Acetaminophen 500 MG Tab PO PRN ×2 (10:34→17:37)
--- NOTE | 2020-04-20 11:05 | PCM.PNPP ---
- General Info Date of Service: 04/20/20 Functional Status: Reports: Pain Controlled, Tolerating Diet, Ambulating, Urinating - Review of Systems General: Denies: Fever, Weakness, Fatigue Pulmonary: Denies: Shortness of Breath Cardiovascular: Denies: Chest Pain, Palpitations, Lightheadedness Gastrointestinal: Denies: Abdominal Pain, Nausea, Vomiting Genitourinary: Denies: Flank Pain Musculoskeletal: Reports: No Symptoms Skin: Reports: No Symptoms Neurological: Reports: No Symptoms Psychiatric: Reports: No Symptoms - General Info Date of Service: 04/20/20 - Patient Data Vital Signs - Most Recent: Last Vital Signs Temp 36.2 C 04/20/20 07:52 Pulse 76 04/20/20 07:52 Resp 18 04/20/20 07:52 BP 120/79 04/20/20 07:52 Pulse Ox 98 04/20/20 07:52 Weight - Most Recent: 79.832 kg Lab Results - Last 24 Hours: Laboratory Results - last 24 hr 04/20/20 Range/Units 06:15 Hgb 10.8 L (12.0-16.0) g/dL Hct 33.0 L (36.0-46.0) % Med Orders - Current: Current Medications Acetaminophen (Tylenol Extra Strength) 500 mg PO Q4H PRN PRN Reason: Pain Acetaminophen (Tylenol Extra Strength) 1,000 mg PO Q4H PRN PRN Reason: Pain Last Admin: 04/20/20 10:34 Dose: 1,000 mg Benzocaine/Menthol (Dermoplast Pain Relief 20%-0.5% [place]) 78 gm TOP ASDIRECTED PRN PRN Reason: Perineal Comfort Measure Bisacodyl (Dulcolax) 10 mg RECTAL ONETIME PRN PRN Reason: Constipation Butorphanol Tartrate (Stadol) 1 mg IVPUSH Q1H PRN PRN Reason: Pain Carboprost Tromethamine (Hemabate Ds) 250 mcg IM ASDIRECTED PRN PRN Reason: Post Hemorrhage Docusate Sodium (Colace) 100 mg PO BID PRN PRN Reason: Constipation Emollient Ointment (Lansinoh Hpa) 0 gm TOP ASDIRECTED PRN PRN Reason: Sore Nipples Last Admin: 04/19/20 23:58 Dose: 7 gm Lactated Ringer's (Ringers, Lactated) 1,000 mls @ 150 mls/hr IV ASDIRECTED MITCH Last Admin: 04/19/20 08:00 Dose: 150 mls/hr Oxytocin/Sodium Chloride (Oxytocin 30 Unit/500 Ml-Ns) 30 unit in 500 mls @ 2 mls/hr IV TITRATE MITCH; Protocol Last Titration: 04/19/20 17:59 Dose: 500 munits/min, 500 mls/hr Oxytocin/Sodium Chloride (Oxytocin 30 Unit/500 Ml-Ns) 30 unit in 500 mls @ 555 mls/hr IV TITRATE MITCH Tranexamic Acid 1,000 mg/ (Sodium Chloride) 110 mls @ 660 mls/hr IV ONETIME PRN PRN Reason: Bleeding Ibuprofen (Motrin) 400 mg PO Q4H PRN PRN Reason: Pain Ibuprofen (Motrin) 800 mg PO Q6H PRN PRN Reason: Pain Last Admin: 04/20/20 05:51 Dose: 800 mg Lidocaine HCl (Xylocaine 1%) 50 ml INJECT ONETIME PRN PRN Reason: Laceration repair Methylergonovine Maleate (Methergine) 0.2 mg IM ASDIRECTED PRN PRN Reason: Post Hemorrhage Misoprostol (Cytotec) 200 mcg PO ONETIME PRN PRN Reason: Post Hemorrhage Nalbuphine HCl (Nubain) 10 mg IVPUSH Q1H PRN PRN Reason: Pain (severe 7-10) Ondansetron HCl (Zofran) 4 mg IVPUSH Q4H PRN PRN Reason: Nausea/Vomiting Oxycodone HCl (Oxycodone) 5 mg PO Q2H PRN PRN Reason: Pain Sodium Chloride (Saline Flush) 10 ml FLUSH ASDIRECTED PRN PRN Reason: Keep Vein Open Sodium Chloride (Saline Flush) 2.5 ml FLUSH ASDIRECTED PRN PRN Reason: Keep Vein Open Sodium Chloride (Normal Saline) 10 ml IV ASDIRECTED PRN PRN Reason: IV Use Sterile Water (Sterile Water For Irrigation) 1,000 ml IRR ASDIRECTED PRN PRN Reason: delivery Witch Sonal (Tucks) 1 pad TOP ASDIRECTED PRN PRN Reason: comfort care Discontinued Medications Fentanyl (Sublimaze) Confirm Administered Dose 100 mcg .ROUTE .[facility]-MED ONE Stop: 04/19/20 10:39 Last Admin: 04/20/20 08:38 Dose: Not Given Ropivacaine (Naropin 0.2%) Confirm Administered Dose 100 mls @ as directed .ROUTE .STK-MED ONE Stop: 04/19/20 10:39 Last Admin: 04/20/20 08:38 Dose: Not Given Ropivacaine (Naropin 0.2%) Confirm Administered Dose 20 ml .ROUTE .STK-MED ONE Stop: 04/19/20 10:39 Last Admin: 04/20/20 08:38 Dose: Not Given Terbutaline Sulfate (Brethine) 0.25 mg SUBCUT ASDIRECTED PRN PRN Reason: Tacysystole - Infant Interaction Support Person: - Recovery Exam Fundal Tone: Firm Fundal Level: 1 Fingerbreadths Below Umbilicus Fundal Placement: Midline Lochia Amount: Scant Lochia Color: Rubra/Red Perineum Description: Intact, Minimal Bruising/Swelling Episiotomy/Laceration: Approximated Bladder Status: Voiding Urinary Elimination: Voided - Exam General: Alert, Oriented Lungs: Normal Respiratory Effort Cardiovascular: Regular Rate, Regular Rhythm GI/Abdominal Exam: Normal Bowel Sounds, Soft, Non-Tender Extremities: Pedal Edema (trace). No: Sarah's Sign Skin: Warm, Dry, Intact Neurological: No New Focal Deficit Psy/Mental Status: Alert, Normal Affect, Normal Mood - Problem List & Annotations (1) Vaginal delivery SNOMED Code(s): 440068391 Code(s): O80 - ENCOUNTER FOR FULL-TERM UNCOMPLICATED DELIVERY Status: Acute Current Visit: No - Problem List Review Problem List Initiated/Reviewed/Updated: Yes - My Orders Last 24 Hours: My Active Orders 04/20/20 11:03 Ready for Discharge [RC] PER UNIT ROUTINE - Assessment Assessment:: PPD 1 status post - Plan Plan:: Doing well overall. VS and labs are reassuring. Would like to go home later today. Discharge instructions reviewed. Follow up at [facility] 6 weeks. Discharge to home today.
--- NOTE | 2020-04-20 11:51 | PCM48HPAN ---
Post Anesthesia Note - EVALUATION WITHIN 48HRS OF ANESTHETIC Vital Signs in Normal Range: Yes Patient Participated in Evaluation: Yes Respiratory Function Stable: Yes Airway Patent: Yes Cardiovascular Function Stable: Yes Hydration Status Stable: Yes Pain Control Satisfactory: Yes Nausea and Vomiting Control Satisfactory: Yes Mental Status Recovered: Yes Vital Signs: Last Vital Signs Temp 36.2 C 04/20/20 07:52 Pulse 76 04/20/20 07:52 Resp 18 04/20/20 07:52 BP 120/79 04/20/20 07:52 Pulse Ox 98 04/20/20 07:52
[2020-04-20 16:33] VITALS: PULSE 70
[2020-04-20 19:44] VITALS: BP 105/62
--- NOTE | 2020-04-23 10:19 | OR ---
SURGEON: NEO CAMARGO DATE OF PROCEDURE: 04/19/2020 PREOPERATIVE DIAGNOSIS: A 34-year-old, G6, P 4-0-1-4, at 40 weeks and 4 days, for induction of labor for post dates. POSTOPERATIVE DIAGNOSIS: A 34-year-old, G6, P 4-0-1-4, at 40 weeks and 4 days, for induction of labor for post dates. PROCEDURE: Normal spontaneous vaginal delivery. ESTIMATED BLOOD LOSS: 200. IV FLUID: Pitocin running. NOTES AND FINDINGS: A live female delivered at 5:57 p.m. score of 8 and 9. Weight is 3740 g. BRIEF HISTORY: She is a 34-year-old, G6, P 4-0-1-4, at 40 weeks and 4 days, who had uncomplicated care, who desired and was then scheduled for induction for post dates. She was 3, 50, minus 2. She received Pitocin. After some hours, she was AROM'd, and a moderate amount of fluid was obtained. She then made progress. She had a normal labor course and made progress and became fully dilated. DESCRIPTION OF PROCEDURE: With the patient being fully dilated, she was encouraged to push. With good pushing effort, she delivered the head, subsequently by the anterior and posterior shoulder. The body of the was delivered without any difficulty and delayed cord clamping was observed. The baby was placed on maternal abdomen. Cord blood gases were obtained. Placenta was delivered via controlled cord traction. Perineum was inspected, noted to be hemostatic. Bimanual massage was done and the uterus was noted to be firm. All instrument and pad counts were correct x2. LAN / JACOB /[id number]
== END 2020-04-20 22:10 | disposition home or self-care (01) | DRG 560 ==
LOC: MW.OB 06:47 → MW.OBCHECK 06:47 → MW.OB 06:59 → OBSVTOIN 18:30 → MW.OB 04-20 00:12 → UNDODISOB 04-20 22:10
PROVIDERS: ADMIT Obstetrics & Gynecology; ATTEND Obstetrics & Gynecology
PROC: 10E0XZZ Delivery of Products of Conception, External Approach (ICD-10-PCS; principal; 2020-04-19)
PROC: 10907ZC Drainage of Amniotic Fluid, Therapeutic from Products of Conception, Via Natural or Artificial Opening (ICD-10-PCS; 2020-04-19)
PROC: 3E033VJ Introduction of Other Hormone into Peripheral Vein, Percutaneous Approach (ICD-10-PCS; 2020-04-19)
PROC: 00HU33Z Insertion of Infusion Device into Spinal Canal, Percutaneous Approach (ICD-10-PCS; 2020-04-19)
PROC: 3E0R3BZ Introduction of Anesthetic Agent into Spinal Canal, Percutaneous Approach (ICD-10-PCS; 2020-04-19)
DX: O69.81X0 Labor and delivery complicated by cord around neck, without compression, not applicable or unspecified (principal); Z3A.40 40 weeks gestation of pregnancy; Z37.0 Single live birth; Z88.1 Allergy status to other antibiotic agents; Z87.891 Personal history of nicotine dependence; Z79.899 Other long term (current) drug therapy
CPT/HCPCS: 01967; 36415; 51702; 59025; 59409; 85014; 85018; 85027; 86592; 86593; 86850; 86900; 86901; A9270-GY; J2590; J2795; J3010; J7120